=== PATIENT | male | born 1985 | race Caucasian/White ===

== ENCOUNTER 2021-06-09 15:06 | Inpatient (IN) | payer MEDICAID ==
[~2021-06-09] VITALS: Ht 193 cm; Wt 103.9 kg
[2021-06-09] MEDS ORDERED: VANCOMYCIN IV 2,000 MG in IV DEXTROSE 5% 500 ML IV STA (15:35)
[2021-06-09] MEDS ORDERED: CEPH500T PO (15:35)
[2021-06-09] MEDS ORDERED: PIPERACILLIN SODIUM/TAZOBACTAM 3.375 G in IV DEXTROSE 5% 50 ML IV ONE (15:45)
[2021-06-09] MEDS ORDERED: IV NORMAL SALINE 1000 ML BAG IV ONE (15:45)
[2021-06-09 16:09] LABS: HEMATOCRIT 27.4 % (36.7-47.1); MEAN CORPUSCULAR HEMOGLOBIN 24.1 uug (23.8-33.4); MEAN CORPUSCULAR VOLUME 73.8 fL (73.0-96.2); PLATELET COUNT (AUTO) 307 K/uL (152-348)
[2021-06-09 16:23] LABS: ETHANOL < 3 MG/DL (0-0)
[2021-06-09 16:28] LABS: CREATINE KINASE, TOTAL 110 U/L (39-308); MAGNESIUM 2.1 mg/dL (1.8-2.4); PHOSPHOROUS 3.9 mg/dL (2.5-4.9)
[2021-06-09 16:30] LABS: ACETAMINOPHEN < 2.0 ug/mL (10-30)
[2021-06-09] MEDS ORDERED: VANCOMYCIN 1000 MG VIAL ONE ×2 (16:40→23:27)
[2021-06-09] MEDS ORDERED: VANCOMYCIN IV 200 ML ONE (16:41)
[2021-06-09] MEDS ORDERED: PIPERACILLIN/TAZOBACTAM/D5W 50 ML IV ONE (16:41)
[2021-06-09 16:43] LABS: BILIRUBIN,DIRECT 0.1 mg/dL (0.0-0.2); BILIRUBIN,TOTAL 0.2 mg/dL (0.2-1.0); CREATININE 1.4 mg/dL (0.6-1.3); TOTAL PROTEIN, SERUM 7.6 g/dL (6.4-8.2)
[2021-06-09] MEDS ORDERED: POTASSIUM CHLORIDE 20 MEQ TAB.PRT.SR PO ONE (17:15)
[2021-06-09] MEDS ORDERED: POTASSIUM CHLORIDE 20 MEQ TAB.PRT.SR ONE (17:34)
--- NOTE | 2021-06-09 18:35 | NUR ---
Gave pt dinner tray
[2021-06-09] MEDS ORDERED: ONDANSETRON 4 MG/2 ML VIAL IV PRN (19:30)
[2021-06-09] MEDS ORDERED: Z GUARD REMEDY PASTE 57 GM TUBE TOP PRN (19:30)
[2021-06-09] MEDS ORDERED: ACETAMINOPHEN 325 MG TABLET PO PRN (19:30)
[2021-06-09] MEDS ORDERED: MAGNESIUM HYDROXIDE 30 ML LIQUID UDC PO PRN (19:30)
--- NOTE | 2021-06-09 21:05 | NUR ---
Care summary. Received report from Jimbo OROSCO.Awake,alert,able to make needs known,oriented to time,place,person purpose.Brought self to ED for RLE pain. B/P112/62,P 80,temp 98.5 F resp 20 Ambulatory to [facility] UA obtained sent to lab 2100.LAC #20 SL. Patient Belonging inventory completed with patient.Room received 330 from to Mildred Orosco. All personel belongings with patient to room via [place].
[2021-06-09 21:31] LABS: *BILIRUBIN,URIN NEGATIVE (NEGATIVE); *BLOOD, URINE 2+ (NEGATIVE); *CLARITY,URINE SLIGHTLY CLOUDY (CLEAR); *COLOR,URINE YELLOW (YELLOW); *KETONES,URINE NEGATIVE (NEGATIVE); *UROBILINOGEN,URINE 0.2 E.U./dl (NORMAL); LEUKOCYTE ESTERASE ,URINE 1+ (NEGATIVE); NITRITE, URINE NEGATIVE (NEGATIVE); UGLUCOSE NEGATIVE (NEGATIVE)
[2021-06-09 21:39] LABS: BACTERIA,URINE MANY /HPF (NONE SEEN); SQUAMOUS EPITHELIAL CELL,UR FEW /HPF (NONE SEEN); WBC,URINE TNTC /HPF (0-3)
[2021-06-09 21:40] LABS: *AMPHETAMINE, URINE POSITIVE (NEGATIVE); *CANNABINOID, URINE POSITIVE (NEGATIVE); *COCCAINE, URINE NEGATIVE (NEGATIVE); *OPIATE, URINE NEGATIVE (NEGATIVE); *PHENCYCLIDINE SCREEN,URINE NEGATIVE (NEGATIVE); MUCUS,URINE FEW /LPF (0-FEW); URINE AMORPHOUS URATE MANY /HPF
[2021-06-09 22:14] VITALS: BP 109/56
[2021-06-09] MEDS: IV NS 1000 ML 1,000 ML IV SCH (22:34)
--- NOTE | 2021-06-09 23:45 | NUR ---
At 0930H, patient admitted to [place] from ER via gurney accompanied by ER nurse. Alert and oriented x4, able to make needs known. Noted with R lower leg pain of 3/10, but bearable. VS WNL. On room air with respiratory distress noted. Full body assessment done, pictures taken, and belongings inventory completed. Heplock on L antecubital flushed with NS, patent and remained intact. Started on NS 1L at 100ml/hr as ordered. Urinal at bedside, emptied out as needed. All needs attended. Call light placed within reach. Frequent visual checks done. Will continue to monitor. Addendum: 06/10/21 at 0241 by COREY BARRETO RN Correct time of admission, 0H.
[2021-06-10] MEDS ORDERED: VANCOMYCIN IV 1,750 MG in IV DEXTROSE 5% 500 ML IV ONE (04:00)
[2021-06-10 04:30] VITALS: BP 113/57
[2021-06-10 06:37] LABS: HEMATOCRIT 24.6 % (36.7-47.1); MEAN CORPUSCULAR HEMOGLOBIN 23.8 uug (23.8-33.4); MEAN CORPUSCULAR VOLUME 74.9 fL (73.0-96.2); PLATELET COUNT (AUTO) 231 K/uL (152-348)
[2021-06-10 06:56] LABS: NEUTROPHILS % (MANUAL) 0 % (42-75)
[2021-06-10 07:10] LABS: PHOSPHOROUS 3.1 mg/dL (2.5-4.9)
--- NOTE | 2021-06-10 07:13 | NUR ---
Patient slept throughout the night, easily arousable for care. Wound culture collected, still pending. R lower leg covered with dry dressing and wrap with Kerlix. Will endorse to next shift for continuity of care.
--- NOTE | 2021-06-10 09:30 | NUR ---
Received patient in bed, asleep, no s/s of distress. Patient in room air saturating at 95%. Patient alert and oriented x 4, able to follow simple commands. Pleasant and cooperative upon assessment. Left AC IV site intact and patent. All needs met promptly. Call light placed within easy reach. Dressing changed on the left lower extremity.
--- NOTE | 2021-06-10 10:00 | NUR ---
IV NS @ 100 ml/hr per MD ordered started on the left AC IV site.
[2021-06-10] MEDS: IV NS 1000 ML 1,000 ML IV SCH ×2 (10:07→15:30)
[2021-06-10 12:00] VITALS: BP 121/64
[2021-06-10] MEDS: VANCOMYCIN IV 1,750 MG in IV DEXTROSE 5% 500 ML IV SCH ×2 (12:29→20:00)
[2021-06-10 16:00] VITALS: BP 123/79
[2021-06-10 20:40] VITALS: BP 123/76
--- NOTE | 2021-06-10 21:49 | NUR ---
Received pt resting in bed. AAO x4. No acute distress noted. Denies pain/ discomfort. IVF @ 100 cc/ hr, IV site in left AC. Vanco held at 2000 due to elevated Vanco trough. Notified outside pharmacy. Safety measures maintained. Call light and personal items within reach. Will continue to monitor.
--- NOTE | 2021-06-10 21:54 | NUR ---
As per outside pharmacy, Vanco to be given at midnight for therapeutic dosing.
[2021-06-11] MEDS: IV NS 1000 ML 1,000 ML IV SCH ×4 (02:03→21:24)
[2021-06-11 04:50] VITALS: BP 123/63
[2021-06-11 06:40] LABS: HEMATOCRIT 28.6 % (36.7-47.1); MEAN CORPUSCULAR HEMOGLOBIN 23.7 uug (23.8-33.4); MEAN CORPUSCULAR VOLUME 74.1 fL (73.0-96.2); PLATELET COUNT (AUTO) 277 K/uL (152-348)
[2021-06-11 07:07] LABS: CREATININE 0.9 mg/dL (0.6-1.3); POTASSIUM 3.9 mmol/L (3.5-5.1)
[2021-06-11] MEDS ORDERED: VANCOMYCIN IV 1,750 MG in IV DEXTROSE 5% 500 ML IV SCH ×2 (08:00)
--- NOTE | 2021-06-11 11:00 | NUR ---
Pt resting in bed. AAO x4. No acute distress noted. Denies pain/ discomfort. On IVF @ 100 cc/ hr. Safety measures maintained. Call light and personal items within reach. Will continue to monitor.
[2021-06-11 12:00] VITALS: BP 124/69
--- NOTE | 2021-06-11 12:37 | NUR ---
WOUND CARE CONSULT: PT PRESENTS WITH DEEP WOUND TO RT ANTERIOR LOWER LEG, PRESENT ON ADMISSION. RECOMMEND DPM CONSULT. DR CASTELLON NOTIFIED OF CONSULT REQUEST. IN AGREEMENT WITH PLAN OF CARE.
[2021-06-11] MEDS ORDERED: TDAP DIPH,PERTUSS,TET VAC/PF 0.5 ML DISP.SYRIN IM ONE (13:15)
--- NOTE | 2021-06-11 13:48 | NUR ---
Dr. Mcclelland seen pt with new order for wound care and Tdap Diph/ Pertussis/ Tetanus vaccine . Will carry out order.
[2021-06-11] MEDS: MORPHINE SULFATE 4 MG/1 ML DISP.SYRIN IV PRN ×3 (14:18→22:43)
--- NOTE | 2021-06-11 15:00 | NUR ---
Wound care rendered, tolerated well.
[2021-06-11 16:00] VITALS: BP 130/82
[2021-06-11 20:00] VITALS: BP 130/76
--- NOTE | 2021-06-11 21:00 | NUR ---
RECEIVED PATIENT ASLEEP IVF OF NS INFUSING AT 100ML/HR NO SIGNS OF RESPIRATORY DISTRESS NOTED. WILL CONTINUE TO MONITOR FOR PAIN SAFETY ANY OTHER NEEDS PATIENT MAY HAVE.
[2021-06-12] MEDS: MORPHINE SULFATE 4 MG/1 ML DISP.SYRIN IV PRN ×2 (03:19→07:41)
[2021-06-12 04:00] VITALS: BP 136/82
[2021-06-12 06:39] LABS: HEMATOCRIT 28.8 % (36.7-47.1); MEAN CORPUSCULAR HEMOGLOBIN 23.8 uug (23.8-33.4); MEAN CORPUSCULAR VOLUME 73.5 fL (73.0-96.2); PLATELET COUNT (AUTO) 336 K/uL (152-348)
[2021-06-12 06:59] LABS: CREATININE 0.9 mg/dL (0.6-1.3); POTASSIUM 4.1 mmol/L (3.5-5.1); VANCOMYCIN,RANDOM 5.4 ug/mL (18.0-26.0)
--- NOTE | 2021-06-12 07:05 | NUR ---
Seen patient lying on bed, alert/oriented x4. IV running, IV site intact no infiltration noted. Dressing intact to the right leg. Will reassess pain medication given by internet salesperson. Will continue to monitor.
[2021-06-12] MEDS ORDERED: SODIUM HYPOCHLORITE 0.125% (QUARTER STRENGTH) 473 ML BOTTLE TP SCH (09:00)
[2021-06-12] MEDS ORDERED: MUPIROCIN 2% OINT 22 GM TUBE TP SCH (09:00)
[2021-06-12] MEDS: IV NS 1000 ML 1,000 ML IV SCH (09:22)
--- NOTE | 2021-06-12 10:25 | NUR ---
The patient is trying to get out of his room stating he wants to leave [facility] and needs to go back to his tent. Informed the patient against medical advise but insisted he does not need the treatments anymore. Hallie Monique NP made aware. Charge nurse and Pick And Shovel Man made aware. The patient signed AMA form, belongings list was signed and given back his knife and aws solution architect.
--- NOTE | 2021-06-12 10:55 | NUR ---
Patient left against medical advise, ambulatory using cane. AMA form signed. Dressing to the right leg intact. Denies pain. VS WNL. No distress noted. VISHAL Sterling made aware. Bus Dispatcher [employer] and charge aware.
--- NOTE | 2021-06-12 11:05 | NUR ---
Reflow Operator Consultation: Reflow Operator consultation requested for homelessness. This MEDICAID SPECIALIST arrived onto med-surg to see patient at 11:00am and was informed by supercharger repair supervisor Merly that patient left AMA. Unable to complete SS consultation. No further SS interventions needed at this time.
[2021-06-12] MEDS ORDERED: VANCOMYCIN IV 1,250 MG in IV DEXTROSE 5% 250 ML IV SCH (12:00)
== END 2021-06-12 10:55 | disposition left against medical advice (07) | DRG 383 ==
LOC: ER 15:13 → MEDSURG3 21:21
PROVIDERS: ADMIT Family Medicine; ATTEND Nurse Practitioner Acute Care
DX: L03.115 Cellulitis of right lower limb (principal); N17.0 Acute kidney failure with tubular necrosis; E44.0 Moderate protein-calorie malnutrition; D63.8 Anemia in other chronic diseases classified elsewhere; E88.09 Other disorders of plasma-protein metabolism, not elsewhere classified; S81.811A Laceration without foreign body, right lower leg, initial encounter; B19.20 Unspecified viral hepatitis C without hepatic coma; L03.116 Cellulitis of left lower limb; F31.9 Bipolar disorder, unspecified; E66.9 Obesity, unspecified; Z87.891 Personal history of nicotine dependence; Z59.0 Homelessness; E87.6 Hypokalemia; Z68.27 Body mass index [BMI] 27.0-27.9, adult; R74.8 Abnormal levels of other serum enzymes; F19.10 Other psychoactive substance abuse, uncomplicated; L53.8 Other specified erythematous conditions; Z20.822 Contact with and (suspected) exposure to COVID-19; X58.XXXA Exposure to other specified factors, initial encounter; Y93.9 Activity, unspecified; Y92.89 Other specified places as the place of occurrence of the external cause; F11.13 Opioid abuse with withdrawal
CPT/HCPCS: 36415; 70030-TC; 71045; 73590; 76700; 83550; 83605; 83735; 84100; 85025; 85651; 85730; 86140; 87040; 87070; 87077; 87086; 90715; 93005; A4663; G0378; G0480; J2270; J2543; J3370; J7030; J7060